=== PATIENT | male | born 1990 | race Hispanic/Latino ===

== ENCOUNTER → 2019-06-08 | Day surgery (SDC) | payer BC ==
[~2019-06-08] MED LIST: CBD PO; FENTANYL CITRATE/PF 100MCG/2 ML INJ ONE; LIDOCAINE HCL 2% LOCAL INJ 5 ML SDV VIAL INJ ONE; LORAZEPAM0.5 MG PO; MELATONIN10 M1 PO; MIDAZOLAM HCL 2 MG/2 ML VIAL ONE; PROPOFOL IV EMULSION 10 MG/ML 50 ML VIAL ONE
--- OUTSIDE RECORDS SUMMARY | 2019-06-08 09:58 | XMS REPORT ---
Author Author [facility] Address Unknown Phone Unavailable Care Team Providers Care Pad Machine Offbearer Name Role Phone Unavailable Unavailable Payers Payer Name Policy Type Policy Number Effective Date Expiration Date Problems This patient has no known problems. Allergies, Adverse Reactions, Alerts Allergy Name Allergy Type Status Severity Reaction(s) Onset Date Inactive Date Treating Clinician Comments No Known Allergies DA Active U 2019-05-31 00:00:00 Medications This patient has no known medications. Encounters Start Date/Time End Date/Time Encounter Type Admission Type Attending [facility] Emergency Department Facility Care Department Encounter ID 2019-05-27 10:13:00 2019-05-27 10:13:00 Emergency E [facility] 7513 2019-05-26 00:28:00 2019-05-26 00:28:00 Emergency E [facility] 7512 2019-05-23 14:47:00 2019-05-23 14:47:00 [facility] 2019-05-20 07:55:00 2019-05-20 07:55:00 [facility] 2019-05-11 15:15:00 2019-05-11 15:15:00 Emergency E [facility] 7509 2019-05-08 19:44:00 2019-05-08 19:44:00 Emergency E [facility] 7508 2019-05-05 13:32:00 2019-05-05 13:32:00 Emergency E [facility] 7507 2019-04-22 20:43:00 2019-04-22 20:43:00 Emergency E [facility] 7506 2019-04-22 11:43:00 2019-04-22 11:43:00 Emergency E [facility] 7505 2019-04-12 21:44:00 2019-04-12 21:44:00 Emergency E [facility] 7504 2019-04-05 12:41:00 2019-04-05 12:41:00 Emergency E [facility] 7503 Results Test Description Test Time Test Comments Text Results Atomic Results Result Comments XR Chest 1 View Frontal 2019-06-06 20:37:41 Patient: MEETA HARRISON Date/Time06/06/2019 20:19 CDTReason for ExamChest painReportSTUDY: Chest radiographHISTORY: Chest painCOMPARISON: 05/07/2019TECHNIQUE: Frontal view of the chest.SITE: [id number]:The cardiac silhouette is unremarkable. There is no pleural effusion, pneumothorax or focal consolidation.No acute osseous abnormalities are identified.IMPRESSION:1. No radiographic evidence of acute pulmonary abnormality. Final Dictated by: MD Prado Robert KDictated DT/TM: 06/06/2019 8:37 pmSigned by: MD Prado Robert KSigned (Electronic Signature): 06/06/2019 8:37 pm D-DIMER 2019-06-02 18:38:00 D-DIMER (test code=DDIMER) 203.00 ng/mLFEU 0-[address] POE BY MARIA L 06/02/19 1741Clinical Cut-off value for D-Dimer is 500 ng/mL FEU. Comment: The [employer] D-Dimer assay is intended for use asan aid in the diagnosis of venous thromboembolism (VTE)[deep vein thrombosis (DVT) or pulmonary embolism (PE)].The measurement of D-Dimer should not be used as an aid inthe diagnosis of VTE, in patient with: -Therapeutic dose anticoagulant therapy for >24 hours -Fibrinolytic therapy within previous 7 days -Trauma or surgery within previous 4 weeks -Disseminated malignancies -Aortic aneurysm - Sepsis, severe infections, pneumonia, severe skin infections -Liver cirrhosis - CBC W/O [id number] 18:16:00* Test Item Value Reference Range Comments WHITE BLOOD CELL (test code=WBC) 11.0 K/mm3 4.5-12.5 RED BLOOD CELL (test code=RBC) 5.80 mill/mm3 4.0-5.8 HEMOGLOBIN (test code=HGB) 15.1 gram/dL 13.0-17.5 HEMATOCRIT (test code=HCT) 45.5 % 42.0-52.0 MEAN CELL VOLUME (test code=MCV) 78.4 fL 80-98 MEAN CELL HGB (test code=MCH) 26.0 picogram 27.0-33.0 MEAN CELL HGB CONCETRATION (test code=MCHC) 33.2 gram/dL 33.0-36.0 RED CELL DISTRIBUTION WIDTH (test code=RDW) 14.8 % 11.6-16.2 PLATELET COUNT (test code=PLT) 254 K/mm3 150-450 MEAN PLATELET VOLUME (test code=MPV) 11.7 fL 6.7-11.0 BASIC METABOLIC [id number] 17:08:00* Test Item Value Reference Range Comments SODIUM (test code=NA) 144 mmol/L 136-145 POTASSIUM (test code=K) 3.4 mmol/L 3.5-5.1 CHLORIDE (test code=CL) 113.0 mmol/L 98-107 CARBON DIOXIDE (test code=CO2) 21.0 mmol/L 21-32 ANION GAP (test code=GAP) 13.4 10-20 GLUCOSE (test code=GLU) 91 mg/dL 74-106 BLOOD UREA NITROGEN (test code=BUN) 20 mg/dL 7-18 GLOMERULAR FILTRATION RATE (test code=GFR) > 60 mL/min >=60 Estimated GFR by using Modified MDRD formula.Chronic kidney disease is defined as either kidney damageor GFR <60 mL/min/1.73 m2 for >3 months. CREATININE (test code=CREAT) 1.00 mg/dL 0.7-1.3 BUN/CREATININE RATIO (test code=BUN/CREA) 20.7 10-20 CALCIUM (test code=CA) 9.3 mg/dL 8.5-10.1 [id number] 17:08:00* Test Item Value Reference Range Comments TROPONIN-I (test code=TROPI) <0.015 ng/mL 0-0.045 BASIC METABOLIC [id number] 17:00:00* Test Item Value Reference Range Comments SODIUM (test code=NA) 144 mmol/L 136-145 POTASSIUM (test code=K) 3.4 mmol/L 3.5-5.1 CHLORIDE (test code=CL) 113.0 mmol/L 98-107 CARBON DIOXIDE (test code=CO2) mmol/L 21-32 ANION GAP (test code=GAP) 10-20 GLUCOSE (test code=GLU) mg/dL 74-106 BLOOD UREA NITROGEN (test code=BUN) mg/dL 7-18 GLOMERULAR FILTRATION RATE (test code=GFR) mL/min >=60 CREATININE (test code=CREAT) mg/dL 0.7-1.3 BUN/CREATININE RATIO (test code=BUN/CREA) 10-20 CALCIUM (test code=CA) mg/dL 8.5-10.1 [id number] 17:00:00* Test Item Value Reference Range Comments TROPONIN-I (test code=TROPI) ng/mL 0-0.045 - XR CHEST 1 [id number] 16:17:00 FAX: Josr Poe MD [place]: B St: REG Name: MEETA PUENTE [facility] : [birth year] Age/S: 29/M [address] [facility] Unit #: [id number] Loc: [place] [address] Phys: Josr Poe MD Acct: [id number] Dis Date: Status: REG ER PHONE #: [phone] Exam Date: 06/02/2019 1559 FAX #: [phone] Reason: CHEST PAIN EXAMS: CPT CODE: [id number] XR CHEST 1 V 21098 EXAM: Chest X-ray, 1 view; CLINICAL HISTORY: Chest pain; FINDINGS: The lungs are clear, no infiltrates, no edema; no effusions; no pneumothorax; n ormal cardiomediastinal silhouette. IMPRESSION: Normal chest x-ray. No change compared with a study from 2 days ago. at 1617 Reporte d and signed by: Ludwig Sheikh M.D. CC: Josr Poe MD Technologist: Ranjan Fowler RT(R) Trnscrd Date/Time/By: 06/02/2019 (0005) : By: nicole MARIEEGRW Orig Print D/T: S: 06/02/2019 (1325) PAGE 1 Signed Report BASIC METABOLIC [id number] 16:26:00* Test Item Value Reference Range Comments SODIUM (test code=NA) 141 mmol/L 136-145 POTASSIUM (test code=K) 3.8 mmol/L 3.5-5.1 CHLORIDE (test code=CL) 111.0 mmol/L 98-107 CARBON DIOXIDE (test code=CO2) 21.0 mmol/L 21-32 ANION GAP (test code=GAP) 12.8 10-20 GLUCOSE (test code=GLU) 93 mg/dL 74-106 BLOOD UREA NITROGEN (test code=BUN) 14 mg/dL 7-18 GLOMERULAR FILTRATION RATE (test code=GFR) > 60 mL/min >=60 Estimated GFR by using Modified MDRD formula.Chronic kidney disease is defined as either kidney damageor GFR <60 mL/min/1.73 m2 for >3 months. CREATININE (test code=CREAT) 1.00 mg/dL 0.7-1.3 BUN/CREATININE RATIO (test code=BUN/CREA) 14.3 10-20 CALCIUM (test code=CA) 9.8 mg/dL 8.5-10.1 [id number] 16:26:00* Test Item Value Reference Range Comments TROPONIN-I (test code=TROPI) <0.015 ng/mL 0-0.045 - XR CHEST 1 [id number] 16:24:00 FAX: Ngoc Wakefield NP [place]: St: REG Name: MEETA PUENTE [facility] : [birth year] Age/S: 29/M [facility] Unit #: [id number] Loc: [place] [address] Phys: Ngoc Wakefield NP Acct: [id number] Dis Date: Status: REG ER PHONE #: [phone] Exam Date: 05/31/2019 1621 FAX #: [phone] Reason: CHEST PAIN EXAMS: CPT CODE: [id number] XR CHEST 1 V 70411 REASON FOR EXAM: CHEST PAIN EXAM ORDER DATE: 05/31/2019 3:56 PM Ordering Debbie: Ngoc Wakefield NP PROCEDURE: - XR CHEST 1 V COMPARISON: FINDINGS: Portable AP frontal view of the chest obtained at 4:15 PM shows clear lungs without evidence of consolidation. There is no evidence of effusion. The heart size is within normal limits. Pulmonary vasculatures are unremarkable. IMPRESSION: No active disease. at 5935 Reported and signed by: Kashmir Pope M.D. CC: Ngoc Wakefield NP Technologist: RT ARNULFO(R) Trnscrd Date/Time/By: 05/31/2019 (1 587) : By: DeisiVTL Orig Print D/T: S: 05/31/2019 (8657) PAGE 1 Signed Report BASIC METABOLIC [id number] 16:18:00* Test Item Value Reference Range Comments SODIUM (test code=NA) 141 mmol/L 136-145 POTASSIUM (test code=K) 3.8 mmol/L 3.5-5.1 CHLORIDE (test code=CL) 111.0 mmol/L 98-107 CARBON DIOXIDE (test code=CO2) mmol/L 21-32 ANION GAP (test code=GAP) 10-20 GLUCOSE (test code=GLU) mg/dL 74-106 BLOOD UREA NITROGEN (test code=BUN) mg/dL 7-18 GLOMERULAR FILTRATION RATE (test code=GFR) mL/min >=60 CREATININE (test code=CREAT) mg/dL 0.7-1.3 BUN/CREATININE RATIO (test code=BUN/CREA) 10-20 CALCIUM (test code=CA) 9.8 mg/dL 8.5-10.1 [id number] 16:18:00* Test Item Value Reference Range Comments TROPONIN-I (test code=TROPI) ng/mL 0-0.045 CBC W/O [id number] 16:13:00* Test Item Value Reference Range Comments WHITE BLOOD CELL (test code=WBC) 10.9 K/mm3 4.5-12.5 RED BLOOD CELL (test code=RBC) 5.95 mill/mm3 4.0-5.8 HEMOGLOBIN (test code=HGB) 15.4 gram/dL 13.0-17.5 HEMATOCRIT (test code=HCT) 47.2 % 42.0-52.0 MEAN CELL VOLUME (test code=MCV) 79.3 fL 80-98 MEAN CELL HGB (test code=MCH) 25.9 picogram 27.0-33.0 MEAN CELL HGB CONCETRATION (test code=MCHC) 32.6 gram/dL 33.0-36.0 RED CELL DISTRIBUTION WIDTH (test code=RDW) 15.0 % 11.6-16.2 PLATELET COUNT (test code=PLT) 276 K/mm3 150-450 MEAN PLATELET VOLUME (test code=MPV) 10.8 fL 6.7-11.0 CBC W/O [id number] 16:09:00* Test Item Value Reference Range Comments WHITE BLOOD CELL (test code=WBC) K/mm3 4.5-12.5 RED BLOOD CELL (test code=RBC) mill/mm3 4.0-5.8 HEMOGLOBIN (test code=HGB) 15.4 gram/dL 13.0-17.5 HEMATOCRIT (test code=HCT) 47.2 % 42.0-52.0 MEAN CELL VOLUME (test code=MCV) fL 80-98 MEAN CELL HGB (test code=MCH) picogram 27.0-33.0 MEAN CELL HGB CONCETRATION (test code=MCHC) gram/dL 33.0-36.0 RED CELL DISTRIBUTION WIDTH (test code=RDW) % 11.6-16.2 PLATELET COUNT (test code=PLT) K/mm3 150-450 MEAN PLATELET VOLUME (test code=MPV) fL 6.7-11.0 Urine [id number] 06:29:47 C Urine Added by [email or web address] growth at 24 hours. No growth at 48 hours.Comprehensive Metabolic [id number] 14:14:06 * Test Item Value Reference Range Comments Sodium Level (test code=Sodium Level) 142.0 mmol/L 135.0-145.0 Potassium Level (test code=Potassium Level) 3.8 mmol/L 3.5-5.1 Chloride Level (test code=Chloride Level) 105 mmol/L 98-105 CO2 (test code=CO2) 23 mmol/L 22-29 Anion Gap (test code=Anion Gap) 14 mmol/L 7-16 BUN (test code=BUN) 11.90 mg/dL 6.00-20.00 Creatinine Level (test code=Creatinine Level) 1.00 mg/dL 0.70-1.20 BUN/Creat Ratio (test code=BUN/Creat Ratio) 12 Glucose Level (test code=Glucose Level) 152 mg/dL 70-115 Calcium Level (test code=Calcium Level) 9.9 mg/dL 8.3-10.5 Alk Phos (test code=Alk Phos) 73 U/L 40-129 Bilirubin Total (test code=Bilirubin Total) 1.1 mg/dL 0.1-0.9 Albumin Level (test code=Albumin Level) 4.7 g/dL 3.5-5.2 Protein Total (test code=Protein Total) 7.5 g/dL 6.4-8.3 ALT (test code=ALT) 54 U/L 1-41 AST (test code=AST) 24 U/L 1-40 Globulin (test code=Globulin) 2.8 g/dL 2.9-3.1 A/G Ratio (test code=A/G Ratio) 1.7 ratio Comprehensive Metabolic [id number] 14:14:06* Test Item Value Reference Range Comments Sodium Level (test code=Sodium Level) 142.0 mmol/L 135.0-145.0 Potassium Level (test code=Potassium Level) 3.8 mmol/L 3.5-5.1 Chloride Level (test code=Chloride Level) 105 mmol/L 98-105 CO2 (test code=CO2) 23 mmol/L 22-29 Anion Gap (test code=Anion Gap) 14 mmol/L 7-16 BUN (test code=BUN) 11.90 mg/dL 6.00-20.00 Creatinine Level (test code=Creatinine Level) 1.00 mg/dL 0.70-1.20 BUN/Creat Ratio (test code=BUN/Creat Ratio) 12 Glucose Level (test code=Glucose Level) 152 mg/dL 70-115 Calcium Level (test code=Calcium Level) 9.9 mg/dL 8.3-10.5 Alk Phos (test code=Alk Phos) 73 U/L 40-129 Bilirubin Total (test code=Bilirubin Total) 1.1 mg/dL 0.1-0.9 Albumin Level (test code=Albumin Level) 4.7 g/dL 3.5-5.2 Protein Total (test code=Protein Total) 7.5 g/dL 6.4-8.3 ALT (test code=ALT) 54 U/L 1-41 AST (test code=AST) 24 U/L 1-40 Globulin (test code=Globulin) 2.8 g/dL 2.9-3.1 A/G Ratio (test code=A/G Ratio) 1.7 ratio eGFR AA (test code=eGFR AA) >60 mL/min/1.73 m2 eGFR (estimated Glomerular Filtration Rate) is an estimated value, calculated from the patient's serum creatinine using the MDRD equation. It is NOT the patient's actual GFR. The eGFR provides a more clinically useful measure of kidney disease than serum creatinine alone.This calculation takes sex and race into account, if the information is provided. If the race is not provided, and the patient is -[place], multiply by 1.212. If sex is not provided, and the patient is female, multiply by 0.742. Results for patients <18 years of age have not been validated by the MDRD study and should be interpreted with caution. eGFR Result Interpretation:eGFR > or=60 is in the Normal RangeeGFR < 60 may mean kidney diseaseeGFR < 15 may mean kidney failure Ranges recommended by the National Kidney Foundation, http://nkdep.nih.gov Troponin [id number] 14:14:06* Test Item Value Reference Range Comments Troponin-T (test code=Troponin-T) <6.000 ng/L 0.000-22.000 The CV of the assay at 99th percentile for both male and female patient population is < 10%. A rise and fall in MICHELLE with at least one value above the 99th percentile with clinical evidence of myocardial ischemia would support a diagnosis of AMI. A delta of at least 20% is recommended to assess acute changes in results above the 99th percentile in serial measurements. Stable MICHELLE levels (<20%) delta above the 99th percentile URL would support a diagnosis of chronic myocardial injury. Comprehensive Metabolic [id number] 14:14:06* Test Item Value Reference Range Comments Sodium Level (test code=Sodium Level) 142.0 mmol/L 135.0-145.0 Potassium Level (test code=Potassium Level) 3.8 mmol/L 3.5-5.1 Chloride Level (test code=Chloride Level) 105 mmol/L 98-105 CO2 (test code=CO2) 23 mmol/L 22-29 Anion Gap (test code=Anion Gap) 14 mmol/L 7-16 BUN (test code=BUN) 11.90 mg/dL 6.00-20.00 Creatinine Level (test code=Creatinine Level) 1.00 mg/dL 0.70-1.20 BUN/Creat Ratio (test code=BUN/Creat Ratio) 12 Glucose Level (test code=Glucose Level) 152 mg/dL 70-115 Calcium Level (test code=Calcium Level) 9.9 mg/dL 8.3-10.5 Alk Phos (test code=Alk Phos) 73 U/L 40-129 Bilirubin Total (test code=Bilirubin Total) 1.1 mg/dL 0.1-0.9 Albumin Level (test code=Albumin Level) 4.7 g/dL 3.5-5.2 Protein Total (test code=Protein Total) 7.5 g/dL 6.4-8.3 ALT (test code=ALT) 54 U/L 1-41 AST (test code=AST) 24 U/L 1-40 Globulin (test code=Globulin) 2.8 g/dL 2.9-3.1 A/G Ratio (test code=A/G Ratio) 1.7 ratio eGFR AA (test code=eGFR AA) >60 mL/min/1.73 m2 eGFR (estimated Glomerular Filtration Rate) is an estimated value, calculated from the patient's serum creatinine using the MDRD equation. It is NOT the patient's actual GFR. The eGFR provides a more clinically useful measure of kidney disease than serum creatinine alone.This calculation takes sex and race into account, if the information is provided. If the race is not provided, and the patient is -[place], multiply by 1.212. If sex is not provided, and the patient is female, multiply by 0.742. Results for patients <18 years of age have not been validated by the MDRD study and should be interpreted with caution. eGFR Result Interpretation:eGFR > or=60 is in the Normal RangeeGFR < 60 may mean kidney diseaseeGFR < 15 may mean kidney failure Ranges recommended by the National Kidney Foundation, http://nkdep.nih.gov eGFR Non-AA (test code=eGFR Non-AA) >60.00 mL/min/1.73 m2 eGFR (estimated Glomerular Filtration Rate) is an estimated value, calculated from the patient's serum creatinine using the MDRD equation. It is NOT the patient's actual GFR. The eGFR provides a more clinically useful measure of kidney disease than serum creatinine alone.This calculation takes sex and race into account, if the information is provided. If the race is not provided, and the patient is -[place], multiply by 1.212. If sex is not provided, and the patient is female, multiply by 0.742. Results for patients <18 years of age have not been validated by the MDRD study and should be interpreted with caution. eGFR Result Interpretation:eGFR > or=60 is in the Normal RangeeGFR < 60 may mean kidney diseaseeGFR < 15 may mean kidney failure Ranges recommended by the National Kidney Foundation, http://nkdep.nih.gov Urinalysis [id number] 14:05:57* Test Item Value Reference Range Comments UA WBC (test code=UA WBC) 0-5 0-5 UA RBC (test code=UA RBC) None Seen 0-5 UA Bacteria (test code=UA Bacteria) Few UA Squam Epithelial (test code=UA Squam Epithelial) 6-10 UA Ca Ox Crystal (test code=UA Ca Ox Crystal) Few Urinalysis with Culture, if [id number] 13:56:53* Test Item Value Reference Range Comments UA Color (test code=UA Color) YELLO Yellow UA Appear (test code=UA Appear) CLEAR Clear UA pH (test code=UA pH) 5 UA Spec Grav (test code=UA Spec Grav) 1.021 1.001-1.035 UA Glucose (test code=UA Glucose) NEG Negative UA Bili (test code=UA Bili) NEG Negative UA Ketones (test code=UA Ketones) 150 mg/dL Negative UA Blood (test code=UA Blood) NEG Negative UA Protein (test code=UA Protein) NEG Negative UA Urobilinogen (test code=UA Urobilinogen) 0.2 mg/dL UA Nitrite (test code=UA Nitrite) NEG Negative UA Leuk Est (test code=UA Leuk Est) NEG Negative UA Micro Ind? (test code=UA Micro Ind?) Indicated Not Indicated Result created by rule GL_SJM_UA_MICRO_IND IG [id number] 13:55:29* Test Item Value Reference Range Comments IG (test code=IG) 0.4 % 0.0-5.0 IG Abs (test code=IG Abs) 0 x10 Complete Blood Count with [id number] 13:55:28* Test Item Value Reference Range Comments WBC (test code=WBC) 8.3 x10 4.4-10.5 RBC (test code=RBC) 5.86 x10 4.10-5.70 Hgb (test code=Hgb) 15.6 g/dL 13.4-17.4 Hct (test code=Hct) 46.7 % 38.7-52.0 MCV (test code=MCV) 79.70 fL 80.00-100.00 MCHC (test code=MCHC) 33.40 g/dL 32.00-37.50 MCH (test code=MCH) 26.6 pg 27.0-32.5 RDW CV (test code=RDW CV) 14.9 % 11.5-14.5 Platelets (test code=Platelets) 256.0 x10 140.0-440.0 MPV (test code=MPV) 10.9 fL Slide Review (test code=Slide Review) Auto Auto Result created by GL_SJM_SLIDE_REV_AUTO nRBC (test code=nRBC) 0 NRBC Abs (test code=NRBC Abs) 0.00 x10 IPF (test code=IPF) 0 % Automated [id number] 13:55:28* Test Item Value Reference Range Comments Neutro Auto (test code=Neutro Auto) 66.3 % 36.0-70.0 Lymph Auto (test code=Lymph Auto) 29.6 % 12.0-44.0 Butler Auto (test code=Butler Auto) 2.9 % 0.0-11.0 Eos, Auto (test code=Eos, Auto) 0.4 % 0.0-7.0 Basophil Auto (test code=Basophil Auto) 0.4 % 0.0-2.0 Neutro Absolute (test code=Neutro Absolute) 5.5 x10 1.6-7.4 Lymph Absolute (test code=Lymph Absolute) 2.46 x10 .50-4.60 Butler Absolute (test code=Butler Absolute) .24 x10 .00-1.20 Eos Absolute (test code=Eos Absolute) 0.03 x10 0.00-0.74 Baso Absolute (test code=Baso Absolute) 0.03 x10 0.00-0.21 Comprehensive Metabolic [id number] 23:21:41* Test Item Value Reference Range Comments Sodium Level (test code=Sodium Level) 137.0 mmol/L 135.0-145.0 Potassium Level (test code=Potassium Level) 3.5 mmol/L 3.5-5.1 Chloride Level (test code=Chloride Level) 102 mmol/L 98-105 CO2 (test code=CO2) 22 mmol/L 22-29 Anion Gap (test code=Anion Gap) 13 mmol/L 7-16 BUN (test code=BUN) 12.10 mg/dL 6.00-20.00 Creatinine Level (test code=Creatinine Level) 0.90 mg/dL 0.70-1.20 BUN/Creat Ratio (test code=BUN/Creat Ratio) 13 Glucose Level (test code=Glucose Level) 98 mg/dL 70-115 Calcium Level (test code=Calcium Level) 9.7 mg/dL 8.3-10.5 Alk Phos (test code=Alk Phos) 88 U/L 40-129 Bilirubin Total (test code=Bilirubin Total) 0.7 mg/dL 0.1-0.9 Albumin Level (test code=Albumin Level) 4.8 g/dL 3.5-5.2 Protein Total (test code=Protein Total) 7.4 g/dL 6.4-8.3 ALT (test code=ALT) 83 U/L 1-41 AST (test code=AST) 45 U/L 1-40 Globulin (test code=Globulin) 2.6 g/dL 2.9-3.1 A/G Ratio (test code=A/G Ratio) 1.8 ratio Comprehensive Metabolic [id number] 23:21:41* Test Item Value Reference Range Comments Sodium Level (test code=Sodium Level) 137.0 mmol/L 135.0-145.0 Potassium Level (test code=Potassium Level) 3.5 mmol/L 3.5-5.1 Chloride Level (test code=Chloride Level) 102 mmol/L 98-105 CO2 (test code=CO2) 22 mmol/L 22-29 Anion Gap (test code=Anion Gap) 13 mmol/L 7-16 BUN (test code=BUN) 12.10 mg/dL 6.00-20.00 Creatinine Level (test code=Creatinine Level) 0.90 mg/dL 0.70-1.20 BUN/Creat Ratio (test code=BUN/Creat Ratio) 13 Glucose Level (test code=Glucose Level) 98 mg/dL 70-115 Calcium Level (test code=Calcium Level) 9.7 mg/dL 8.3-10.5 Alk Phos (test code=Alk Phos) 88 U/L 40-129 Bilirubin Total (test code=Bilirubin Total) 0.7 mg/dL 0.1-0.9 Albumin Level (test code=Albumin Level) 4.8 g/dL 3.5-5.2 Protein Total (test code=Protein Total) 7.4 g/dL 6.4-8.3 ALT (test code=ALT) 83 U/L 1-41 AST (test code=AST) 45 U/L 1-40 Globulin (test code=Globulin) 2.6 g/dL 2.9-3.1 A/G Ratio (test code=A/G Ratio) 1.8 ratio eGFR AA (test code=eGFR AA) >60 mL/min/1.73 m2 eGFR (estimated Glomerular Filtration Rate) is an estimated value, calculated from the patient's serum creatinine using the MDRD equation. It is NOT the patient's actual GFR. The eGFR provides a more clinically useful measure of kidney disease than serum creatinine alone.This calculation takes sex and race into account, if the information is provided. If the race is not provided, and the patient is -[place], multiply by 1.212. If sex is not provided, and the patient is female, multiply by 0.742. Results for patients <18 years of age have not been validated by the MDRD study and should be interpreted with caution. eGFR Result Interpretation:eGFR > or=60 is in the Normal RangeeGFR < 60 may mean kidney diseaseeGFR < 15 may mean kidney failure Ranges recommended by the National Kidney Foundation, http://nkdep.nih.gov Lipase [id number] 23:21:41* Test Item Value Reference Range Comments Lipase Level (test code=Lipase Level) 31 U/L 13-60 Comprehensive Metabolic [id number] 23:21:41* Test Item Value Reference Range Comments Sodium Level (test code=Sodium Level) 137.0 mmol/L 135.0-145.0 Potassium Level (test code=Potassium Level) 3.5 mmol/L 3.5-5.1 Chloride Level (test code=Chloride Level) 102 mmol/L 98-105 CO2 (test code=CO2) 22 mmol/L 22-29 Anion Gap (test code=Anion Gap) 13 mmol/L 7-16 BUN (test code=BUN) 12.10 mg/dL 6.00-20.00 Creatinine Level (test code=Creatinine Level) 0.90 mg/dL 0.70-1.20 BUN/Creat Ratio (test code=BUN/Creat Ratio) 13 Glucose Level (test code=Glucose Level) 98 mg/dL 70-115 Calcium Level (test code=Calcium Level) 9.7 mg/dL 8.3-10.5 Alk Phos (test code=Alk Phos) 88 U/L 40-129 Bilirubin Total (test code=Bilirubin Total) 0.7 mg/dL 0.1-0.9 Albumin Level (test code=Albumin Level) 4.8 g/dL 3.5-5.2 Protein Total (test code=Protein Total) 7.4 g/dL 6.4-8.3 ALT (test code=ALT) 83 U/L 1-41 AST (test code=AST) 45 U/L 1-40 Globulin (test code=Globulin) 2.6 g/dL 2.9-3.1 A/G Ratio (test code=A/G Ratio) 1.8 ratio eGFR AA (test code=eGFR AA) >60 mL/min/1.73 m2 eGFR (estimated Glomerular Filtration Rate) is an estimated value, calculated from the patient's serum creatinine using the MDRD equation. It is NOT the patient's actual GFR. The eGFR provides a more clinically useful measure of kidney disease than serum creatinine alone.This calculation takes sex and race into account, if the information is provided. If the race is not provided, and the patient is -[place], multiply by 1.212. If sex is not provided, and the patient is female, multiply by 0.742. Results for patients <18 years of age have not been validated by the MDRD study and should be interpreted with caution. eGFR Result Interpretation:eGFR > or=60 is in the Normal RangeeGFR < 60 may mean kidney diseaseeGFR < 15 may mean kidney failure Ranges recommended by the [employer], http://nkdep.nih.gov eGFR Non-AA (test code=eGFR Non-AA) >60.00 mL/min/1.73 m2 eGFR (estimated Glomerular Filtration Rate) is an estimated value, calculated from the patient's serum creatinine using the MDRD equation. It is NOT the patient's actual GFR. The eGFR provides a more clinically useful measure of kidney disease than serum creatinine alone.This calculation takes sex and race into account, if the information is provided. If the race is not provided, and the patient is -[place], multiply by 1.212. If sex is not provided, and the patient is female, multiply by 0.742. Results for patients <18 years of age have not been validated by the MDRD study and should be interpreted with caution. eGFR Result Interpretation:eGFR > or=60 is in the Normal RangeeGFR < 60 may mean kidney diseaseeGFR < 15 may mean kidney failure Ranges recommended by the National Kidney Foundation, http://nkdep.nih.gov Complete Blood Count with [id number] 22:58:44* Test Item Value Reference Range Comments WBC (test code=WBC) 9.7 x10 4.4-10.5 RBC (test code=RBC) 5.73 x10 4.10-5.70 Hgb (test code=Hgb) 15.0 g/dL 13.4-17.4 MCV (test code=MCV) 78.70 fL 80.00-100.00 Hct (test code=Hct) 45.1 % 38.7-52.0 MCHC (test code=MCHC) 33.30 g/dL 32.00-37.50 RDW CV (test code=RDW CV) 14.8 % 11.5-14.5 MCH (test code=MCH) 26.2 pg 27.0-32.5 Platelets (test code=Platelets) 259.0 x10 140.0-440.0 MPV (test code=MPV) 11.2 fL Slide Review (test code=Slide Review) Auto Auto Result created by [email or web address]_AUTO nRBC (test code=nRBC) 0 NRBC Abs (test code=NRBC Abs) 0.00 x10 IPF (test code=IPF) 0 % Automated [id number] 22:58:44* Test Item Value Reference Range Comments Neutro Auto (test code=Neutro Auto) 45.0 % 36.0-70.0 Lymph Auto (test code=Lymph Auto) 46.7 % 12.0-44.0 Butler Auto (test code=Butler Auto) 6.2 % 0.0-11.0 Eos, Auto (test code=Eos, Auto) 1.3 % 0.0-7.0 Basophil Auto (test code=Basophil Auto) 0.5 % 0.0-2.0 Neutro Absolute (test code=Neutro Absolute) 4.3 x10 1.6-7.4 Lymph Absolute (test code=Lymph Absolute) 4.51 x10 .50-4.60 Butler Absolute (test code=Butler Absolute) .60 x10 .00-1.20 Eos Absolute (test code=Eos Absolute) 0.13 x10 0.00-0.74 Baso Absolute (test code=Baso Absolute) 0.05 x10 0.00-0.21 IG [id number] 22:58:44* Test Item Value Reference Range Comments IG (test code=IG) 0.3 % 0.0-5.0 IG Abs (test code=IG Abs) [address] Angio [id number] 08:37:52Patient: MEETA HARRISON Date/Time05/07/2019 08:27 CDTReason for Examchest pain, dyspnea;Chest painReportDictation location R 16 CT OF THE CHEST WITH CONTRASTCLINICAL HISTORY:Chest painTECHNIQUE:1.5 mm contiguous axial images were obtained from the aortic arch to the diaphragmatic dome. Intravenous contrast was administered using CT pulmonary angiogram protocol. Sagittal and coronal and coronal oblique reformations were obtained and reviewed. An up to date CT recommended radiation dose reduction technique was utilized with total DLP of 605 mGy-cm.COMPARISON: Recent chest x-ray which was unremarkable.FINDINGS:Pulmonary arteries: Suboptimal opacification of the pulmonary arteries with no obvious pulmonary embolism.Heart and great vessels: Normal size heart. No pericardial effusion, cardiac decompensation.Lungs and pleura: No endobronchial obstruction, focal consolidation, pneumothorax or eff usion. No concerning nodules or masses. The chest wall is intact.Mediastinum and shonna: Normal appearing thyroid. No abnormal mass or adenopathy.Upper abdomen: N othing acuteBones and soft tissues: No focal findings.IMPRESSION:1. Suboptimal o pacification of the pulmonary arteries with no obvious pulmonary embolism.2. Unr emarkable CT of the chest. Final Dictated by: MD Carballo Phebe CDict ated DT/TM: 05/07/2019 8:34 amSigned by: MD Carballo Phebe CSigned (Electronic Si gnature): 05/07/2019 8:37 amComprehensive Metabolic [id number] 07:04:12* Test Item Value Reference Range Comments Sodium Level (test code=Sodium Level) 140.0 mmol/L 135.0-145.0 Potassium Level (test code=Potassium Level) 3.7 mmol/L 3.5-5.1 Chloride Level (test code=Chloride Level) 105 mmol/L 98-105 CO2 (test code=CO2) 25 mmol/L 22-29 Anion Gap (test code=Anion Gap) 10 mmol/L 7-16 BUN (test code=BUN) 9.40 mg/dL 6.00-20.00 Creatinine Level (test code=Creatinine Level) 1.00 mg/dL 0.70-1.20 BUN/Creat Ratio (test code=BUN/Creat Ratio) 9 Glucose Level (test code=Glucose Level) 93 mg/dL 70-115 Calcium Level (test code=Calcium Level) 9.4 mg/dL 8.3-10.5 Alk Phos (test code=Alk Phos) 73 U/L 40-129 Bilirubin Total (test code=Bilirubin Total) 1.1 mg/dL 0.1-0.9 Albumin Level (test code=Albumin Level) 4.7 g/dL 3.5-5.2 Protein Total (test code=Protein Total) 7.2 g/dL 6.4-8.3 ALT (test code=ALT) 83 U/L 1-41 AST (test code=AST) 42 U/L 1-40 Globulin (test code=Globulin) 2.5 g/dL 2.9-3.1 A/G Ratio (test code=A/G Ratio) 1.9 ratio Creatine [id number] 07:04:12* Test Item Value Reference Range Comments CK (test code=CK) 200 U/L 39-308 Comprehensive Metabolic [id number] 07:04:12* Test Item Value Reference Range Comments Sodium Level (test code=Sodium Level) 140.0 mmol/L 135.0-145.0 Potassium Level (test code=Potassium Level) 3.7 mmol/L 3.5-5.1 Chloride Level (test code=Chloride Level) 105 mmol/L 98-105 CO2 (test code=CO2) 25 mmol/L 22-29 Anion Gap (test code=Anion Gap) 10 mmol/L 7-16 BUN (test code=BUN) 9.40 mg/dL 6.00-20.00 Creatinine Level (test code=Creatinine Level) 1.00 mg/dL 0.70-1.20 BUN/Creat Ratio (test code=BUN/Creat Ratio) 9 Glucose Level (test code=Glucose Level) 93 mg/dL 70-115 Calcium Level (test code=Calcium Level) 9.4 mg/dL 8.3-10.5 Alk Phos (test code=Alk Phos) 73 U/L 40-129 Bilirubin Total (test code=Bilirubin Total) 1.1 mg/dL 0.1-0.9 Albumin Level (test code=Albumin Level) 4.7 g/dL 3.5-5.2 Protein Total (test code=Protein Total) 7.2 g/dL 6.4-8.3 ALT (test code=ALT) 83 U/L 1-41 AST (test code=AST) 42 U/L 1-40 Globulin (test code=Globulin) 2.5 g/dL 2.9-3.1 A/G Ratio (test code=A/G Ratio) 1.9 ratio eGFR AA (test code=eGFR AA) >60 mL/min/1.73 m2 eGFR (estimated Glomerular Filtration Rate) is an estimated value, calculated from the patient's serum creatinine using the MDRD equation. It is NOT the patient's actual GFR. The eGFR provides a more clinically useful measure of kidney disease than serum creatinine alone.This calculation takes sex and race into account, if the information is provided. If the race is not provided, and the patient is -[place], multiply by 1.212. If sex is not provided, and the patient is female, multiply by 0.742. Results for patients <18 years of age have not been validated by the MDRD study and should be interpreted with caution. eGFR Result Interpretation:eGFR > or=60 is in the Normal RangeeGFR < 60 may mean kidney diseaseeGFR < 15 may mean kidney failure Ranges recommended by the National Kidney Foundation, http://nkdep.nih.gov Lipase [id number] 07:04:12* Test Item Value Reference Range Comments Lipase Level (test code=Lipase Level) 23 U/L 13-60 Alcohol [id number] 07:04:12* Test Item Value Reference Range Comments Ethanol Level (test code=Ethanol Level) <0.00 g/dL 0.00-0.01 Intoxicated 0.080 g/dL or more Ethanol Inst (test code=Ethanol Inst) <0 Comprehensive Metabolic [id number] 07:04:12* Test Item Value Reference Range Comments Sodium Level (test code=Sodium Level) 140.0 mmol/L 135.0-145.0 Potassium Level (test code=Potassium Level) 3.7 mmol/L 3.5-5.1 Chloride Level (test code=Chloride Level) 105 mmol/L 98-105 CO2 (test code=CO2) 25 mmol/L 22-29 Anion Gap (test code=Anion Gap) 10 mmol/L 7-16 BUN (test code=BUN) 9.40 mg/dL 6.00-20.00 Creatinine Level (test code=Creatinine Level) 1.00 mg/dL 0.70-1.20 BUN/Creat Ratio (test code=BUN/Creat Ratio) 9 Glucose Level (test code=Glucose Level) 93 mg/dL 70-115 Calcium Level (test code=Calcium Level) 9.4 mg/dL 8.3-10.5 Alk Phos (test code=Alk Phos) 73 U/L 40-129 Bilirubin Total (test code=Bilirubin Total) 1.1 mg/dL 0.1-0.9 Albumin Level (test code=Albumin Level) 4.7 g/dL 3.5-5.2 Protein Total (test code=Protein Total) 7.2 g/dL 6.4-8.3 ALT (test code=ALT) 83 U/L 1-41 AST (test code=AST) 42 U/L 1-40 Globulin (test code=Globulin) 2.5 g/dL 2.9-3.1 A/G Ratio (test code=A/G Ratio) 1.9 ratio eGFR AA (test code=eGFR AA) >60 mL/min/1.73 m2 eGFR (estimated Glomerular Filtration Rate) is an estimated value, calculated from the patient's serum creatinine using the MDRD equation. It is NOT the patient's actual GFR. The eGFR provides a more clinically useful measure of kidney disease than serum creatinine alone.This calculation takes sex and race into account, if the information is provided. If the race is not provided, and the patient is -[place], multiply by 1.212. If sex is not provided, and the patient is female, multiply by 0.742. Results for patients <18 years of age have not been validated by the MDRD study and should be interpreted with caution. eGFR Result Interpretation:eGFR > or=60 is in the Normal RangeeGFR < 60 may mean kidney diseaseeGFR < 15 may mean kidney failure Ranges recommended by the National Kidney Foundation, http://nkdep.nih.gov eGFR Non-AA (test code=eGFR Non-AA) >60.00 mL/min/1.73 m2 eGFR (estimated Glomerular Filtration Rate) is an estimated value, calculated from the patient's serum creatinine using the MDRD equation. It is NOT the patient's actual GFR. The eGFR provides a more clinically useful measure of kidney disease than serum creatinine alone.This calculation takes sex and race into account, if the information is provided. If the race is not provided, and the patient is -[place], multiply by 1.212. If sex is not provided, and the patient is female, multiply by 0.742. Results for patients <18 years of age have not been validated by the MDRD study and should be interpreted with caution. eGFR Result Interpretation:eGFR > or=60 is in the Normal RangeeGFR < 60 may mean kidney diseaseeGFR < 15 may mean kidney failure Ranges recommended by the National Kidney Foundation, http://nkdep.nih.gov Drugs of Abuse Urine [id number] 07:03:53* Test Item Value Reference Range Comments Amphetamine Screen Ur (test code=Amphetamine Screen Ur) Negative Negative For diagnostic purposes only. Positive results should always be assessed in conjunction with a patient's medical history. Barbiturate Screen Ur (test code=Barbiturate Screen Ur) Negative Negative Benzodiazepines Ur (test code=Benzodiazepines Ur) Negative Negative Cocaine Screen Ur (test code=Cocaine Screen Ur) Negative Negative U Methadone (test code=U Methadone) Negative Negative Opiate Screen Ur (test code=Opiate Screen Ur) Negative Negative U PCP Scrn (test code=U PCP Scrn) Negative Negative U Propoxyphene (test code=U Propoxyphene) Negative Negative Cannabinoid Screen Ur (test code=Cannabinoid Screen Ur) Negative Negative Urinalysis [id number] 07:01:07* Test Item Value Reference Range Comments UA WBC (test code=UA WBC) None Seen 0-5 UA RBC (test code=UA RBC) None Seen 0-5 UA Ca Ox Crystal (test code=UA Ca Ox Crystal) Moderate Pro B Natriuretic [id number] 06:59:56* Test Item Value Reference Range Comments NT-proBNP (test code=NT-proBNP) 88 pg/mL 0-124 Prothrombin Time and [id number] 06:59:03* Test Item Value Reference Range Comments Prothrombin Time (test code=Prothrombin Time) 13.0 seconds 9.8-13.4 INR (test code=INR) 1.1 ratio 0.6-1.2 Partial Thromboplastin [id number] 06:59:03* Test Item Value Reference Range Comments Partial Thromboplastin Time (test code=Partial Thromboplastin Time) 31.90 seconds 24.39-37.25 Urinalysis with Microscopic if [id number] 06:53:56* Test Item Value Reference Range Comments UA Color (test code=UA Color) YELLO Yellow UA Appear (test code=UA Appear) CLEAR Clear UA pH (test code=UA pH) 5 UA Spec Grav (test code=UA Spec Grav) 1.015 1.001-1.035 UA Glucose (test code=UA Glucose) NEG Negative UA Ketones (test code=UA Ketones) 15 mg/dL Negative UA Blood (test code=UA Blood) NEG Negative UA Protein (test code=UA Protein) NEG Negative UA Bili (test code=UA Bili) NEG Negative UA Urobilinogen (test code=UA Urobilinogen) 0.2 mg/dL UA Nitrite (test code=UA Nitrite) NEG Negative UA Leuk Est (test code=UA Leuk Est) NEG Negative UA Micro Ind? (test code=UA Micro Ind?) Indicated Not Indicated Result created by rule GL_[email or web address]_UA_MICRO_IND Troponin [id number] 06:53:04* Test Item Value Reference Range Comments Troponin-T (test code=Troponin-T) 6.240 ng/L 0.000-22.000 The CV of the assay at 99th percentile for both male and female patient population is < 10%. A rise and fall in MICHELLE with at least one value above the 99th percentile with clinical evidence of myocardial ischemia would support a diagnosis of AMI. A delta of at least 20% is recommended to access acute changes in results above the 99th percentile in serial measurements. Stable MICHELLE levels (<20%) delta above the 99th percentile URL would support a diagnosis of chronic myocardial injury. Complete Blood Count with [id number] 06:50:03* Test Item Value Reference Range Comments WBC (test code=WBC) 5.8 x10 4.4-10.5 RBC (test code=RBC) 5.66 x10 4.10-5.70 Hgb (test code=Hgb) 14.7 g/dL 13.4-17.4 MCV (test code=MCV) 77.00 fL 80.00-100.00 Hct (test code=Hct) 43.6 % 38.7-52.0 MCHC (test code=MCHC) 33.70 g/dL 32.00-37.50 RDW CV (test code=RDW CV) 14.2 % 11.5-14.5 MCH (test code=MCH) 26.0 pg 27.0-32.5 Platelets (test code=Platelets) 264.0 x10 140.0-440.0 MPV (test code=MPV) 11.0 fL Slide Review (test code=Slide Review) Auto Auto Result created by [email or web address]_REV_AUTO nRBC (test code=nRBC) 0 NRBC Abs (test code=NRBC Abs) 0.00 x10 IPF (test code=IPF) 0 % Automated [id number] 06:50:03* Test Item Value Reference Range Comments Neutro Auto (test code=Neutro Auto) 55.4 % 36.0-70.0 Lymph Auto (test code=Lymph Auto) 35.6 % 12.0-44.0 Butler Auto (test code=Butler Auto) 7.4 % 0.0-11.0 Eos, Auto (test code=Eos, Auto) 0.7 % 0.0-7.0 Basophil Auto (test code=Basophil Auto) 0.7 % 0.0-2.0 Neutro Absolute (test code=Neutro Absolute) 3.2 x10 1.6-7.4 Lymph Absolute (test code=Lymph Absolute) 2.08 x10 .50-4.60 Butler Absolute (test code=Butler Absolute) .43 x10 .00-1.20 Eos Absolute (test code=Eos Absolute) 0.04 x10 0.00-0.74 Baso Absolute (test code=Baso Absolute) 0.04 x10 0.00-0.21 IG [id number] 06:50:03* Test Item Value Reference Range Comments IG (test code=IG) 0.2 % 0.0-5.0 IG Abs (test code=IG Abs) 0 x10 XR Chest 1 View [id number] 06:39:00Patient: MEETA HARRISON Date/Time05/07/2019 06:18 CDTReason for ExamCHF (Congestive Heart Failure), knownReportAFTER HOURS SERVICE ON: 05/07/2019 6:38 AMAP Portable ChestLocation Code [id number]: CHF (Congestive Heart Failure), knownFINDINGS:There are no infiltrates. There are no pleural effusions. There is no pneumothorax. Cardiac silhouette and mediastinum appear within normal limits.IMPRESSION:No active pulmonary findings. Final Dictated by: MD Hanks Mohammad TDictated DT/TM: 05/07/2019 6:38 amSigned by: MD Hanks Mohammad TSigned (Electronic Signature): 05/07/2019 6:39 amCreatine [id number] 20:30:46* Test Item Value Reference Range Comments CK (test code=CK) 199 U/L 39-308 Troponin [id number] 20:14:08* Test Item Value Reference Range Comments Troponin-T (test code=Troponin-T) <6.000 ng/L 0.000-22.000 The CV of the assay at 99th percentile for both male and female patient population is < 10%. A rise and fall in MICHELLE with at least one value above the 99th percentile with clinical evidence of myocardial ischemia would support a diagnosis of AMI. A delta of at least 20% is recommended to access acute changes in results above the 99th percentile in serial measurements. Stable MICHELLE levels (<20%) delta above the 99th percentile URL would support a diagnosis of chronic myocardial injury. Comprehensive Metabolic [id number] 20:13:38* Test Item Value Reference Range Comments Sodium Level (test code=Sodium Level) 139.0 mmol/L 135.0-145.0 Potassium Level (test code=Potassium Level) 4.1 mmol/L 3.5-5.1 Chloride Level (test code=Chloride Level) 102 mmol/L 98-105 CO2 (test code=CO2) 29 mmol/L 22-29 Anion Gap (test code=Anion Gap) 8 mmol/L 7-16 BUN (test code=BUN) 11.00 mg/dL 6.00-20.00 Creatinine Level (test code=Creatinine Level) 1.10 mg/dL 0.70-1.20 BUN/Creat Ratio (test code=BUN/Creat Ratio) 10 Glucose Level (test code=Glucose Level) 96 mg/dL 70-115 Calcium Level (test code=Calcium Level) 9.3 mg/dL 8.3-10.5 Alk Phos (test code=Alk Phos) 81 U/L 40-129 Bilirubin Total (test code=Bilirubin Total) 0.7 mg/dL 0.1-0.9 Albumin Level (test code=Albumin Level) 4.5 g/dL 3.5-5.2 Protein Total (test code=Protein Total) 7.6 g/dL 6.4-8.3 ALT (test code=ALT) 102 U/L 1-41 AST (test code=AST) 36 U/L 1-40 Globulin (test code=Globulin) 3.1 g/dL 2.9-3.1 A/G Ratio (test code=A/G Ratio) 1.5 ratio Comprehensive Metabolic [id number] 20:13:38* Test Item Value Reference Range Comments Sodium Level (test code=Sodium Level) 139.0 mmol/L 135.0-145.0 Potassium Level (test code=Potassium Level) 4.1 mmol/L 3.5-5.1 Chloride Level (test code=Chloride Level) 102 mmol/L 98-105 CO2 (test code=CO2) 29 mmol/L 22-29 Anion Gap (test code=Anion Gap) 8 mmol/L 7-16 BUN (test code=BUN) 11.00 mg/dL 6.00-20.00 Creatinine Level (test code=Creatinine Level) 1.10 mg/dL 0.70-1.20 BUN/Creat Ratio (test code=BUN/Creat Ratio) 10 Glucose Level (test code=Glucose Level) 96 mg/dL 70-115 Calcium Level (test code=Calcium Level) 9.3 mg/dL 8.3-10.5 Alk Phos (test code=Alk Phos) 81 U/L 40-129 Bilirubin Total (test code=Bilirubin Total) 0.7 mg/dL 0.1-0.9 Albumin Level (test code=Albumin Level) 4.5 g/dL 3.5-5.2 Protein Total (test code=Protein Total) 7.6 g/dL 6.4-8.3 ALT (test code=ALT) 102 U/L 1-41 AST (test code=AST) 36 U/L 1-40 Globulin (test code=Globulin) 3.1 g/dL 2.9-3.1 A/G Ratio (test code=A/G Ratio) 1.5 ratio eGFR AA (test code=eGFR AA) >60 mL/min/1.73 m2 eGFR (estimated Glomerular Filtration Rate) is an estimated value, calculated from the patient's serum creatinine using the MDRD equation. It is NOT the patient's actual GFR. The eGFR provides a more clinically useful measure of kidney disease than serum creatinine alone.This calculation takes sex and race into account, if the information is provided. If the race is not provided, and the patient is -[place], multiply by 1.212. If sex is not provided, and the patient is female, multiply by 0.742. Results for patients <18 years of age have not been validated by the MDRD study and should be interpreted with caution. eGFR Result Interpretation:eGFR > or=60 is in the Normal RangeeGFR < 60 may mean kidney diseaseeGFR < 15 may mean kidney failure Ranges recommended by the National Kidney Foundation, http://nkdep.nih.gov Comprehensive Metabolic [id number] 20:13:38* Test Item Value Reference Range Comments Sodium Level (test code=Sodium Level) 139.0 mmol/L 135.0-145.0 Potassium Level (test code=Potassium Level) 4.1 mmol/L 3.5-5.1 Chloride Level (test code=Chloride Level) 102 mmol/L 98-105 CO2 (test code=CO2) 29 mmol/L 22-29 Anion Gap (test code=Anion Gap) 8 mmol/L 7-16 BUN (test code=BUN) 11.00 mg/dL 6.00-20.00 Creatinine Level (test code=Creatinine Level) 1.10 mg/dL 0.70-1.20 BUN/Creat Ratio (test code=BUN/Creat Ratio) 10 Glucose Level (test code=Glucose Level) 96 mg/dL 70-115 Calcium Level (test code=Calcium Level) 9.3 mg/dL 8.3-10.5 Alk Phos (test code=Alk Phos) 81 U/L 40-129 Bilirubin Total (test code=Bilirubin Total) 0.7 mg/dL 0.1-0.9 Albumin Level (test code=Albumin Level) 4.5 g/dL 3.5-5.2 Protein Total (test code=Protein Total) 7.6 g/dL 6.4-8.3 ALT (test code=ALT) 102 U/L 1-41 AST (test code=AST) 36 U/L 1-40 Globulin (test code=Globulin) 3.1 g/dL 2.9-3.1 A/G Ratio (test code=A/G Ratio) 1.5 ratio eGFR AA (test code=eGFR AA) >60 mL/min/1.73 m2 eGFR (estimated Glomerular Filtration Rate) is an estimated value, calculated from the patient's serum creatinine using the MDRD equation. It is NOT the patient's actual GFR. The eGFR provides a more clinically useful measure of kidney disease than serum creatinine alone.This calculation takes sex and race into account, if the information is provided. If the race is not provided, and the patient is -[place], multiply by 1.212. If sex is not provided, and the patient is female, multiply by 0.742. Results for patients <18 years of age have not been validated by the MDRD study and should be interpreted with caution. eGFR Result Interpretation:eGFR > or=60 is in the Normal RangeeGFR < 60 may mean kidney diseaseeGFR < 15 may mean kidney failure Ranges recommended by the National Kidney Foundation, http://nkdep.nih.gov eGFR Non-AA (test code=eGFR Non-AA) >60.00 mL/min/1.73 m2 eGFR (estimated Glomerular Filtration Rate) is an estimated value, calculated from the patient's serum creatinine using the MDRD equation. It is NOT the patient's actual GFR. The eGFR provides a more clinically useful measure of kidney disease than serum creatinine alone.This calculation takes sex and race into account, if the information is provided. If the race is not provided, and the patient is -[place], multiply by 1.212. If sex is not provided, and the patient is female, multiply by 0.742. Results for patients <18 years of age have not been validated by the MDRD study and should be interpreted with caution. eGFR Result Interpretation:eGFR > or=60 is in the Normal RangeeGFR < 60 may mean kidney diseaseeGFR < 15 may mean kidney failure Ranges recommended by the National Kidney Foundation, http://nkdep.nih.gov Complete Blood Count with [id number] 20:02:37* Test Item Value Reference Range Comments WBC (test code=WBC) 10.4 x10 4.4-10.5 RBC (test code=RBC) 5.93 x10 4.10-5.70 Hgb (test code=Hgb) 15.2 g/dL 13.4-17.4 Hct (test code=Hct) 46.0 % 38.7-52.0 MCV (test code=MCV) 77.60 fL 80.00-100.00 MCHC (test code=MCHC) 33.00 g/dL 32.00-37.50 MCH (test code=MCH) 25.6 pg 27.0-32.5 RDW CV (test code=RDW CV) 13.7 % 11.5-14.5 Platelets (test code=Platelets) 288.0 x10 140.0-440.0 MPV (test code=MPV) 10.9 fL Slide Review (test code=Slide Review) Auto Auto Result created by [email or web address]_REV_AUTO nRBC (test code=nRBC) 0 NRBC Abs (test code=NRBC Abs) 0.00 x10 IPF (test code=IPF) 0 % Automated [id number] 20:02:37* Test Item Value Reference Range Comments Neutro Auto (test code=Neutro Auto) 54.8 % 36.0-70.0 Lymph Auto (test code=Lymph Auto) 37.7 % 12.0-44.0 Butler Auto (test code=Butler Auto) 6.0 % 0.0-11.0 Eos, Auto (test code=Eos, Auto) 0.6 % 0.0-7.0 Basophil Auto (test code=Basophil Auto) 0.5 % 0.0-2.0 Neutro Absolute (test code=Neutro Absolute) 5.7 x10 1.6-7.4 Lymph Absolute (test code=Lymph Absolute) 3.91 x10 .50-4.60 Butler Absolute (test code=Butler Absolute) .62 x10 .00-1.20 Eos Absolute (test code=Eos Absolute) 0.06 x10 0.00-0.74 Baso Absolute (test code=Baso Absolute) 0.05 x10 0.00-0.21 IG [id number] 20:02:37* Test Item Value Reference Range Comments IG (test code=IG) 0.4 % 0.0-5.0 IG Abs (test code=IG Abs) 0 x10 XR Abdomen KUB 1 [id number] 23:19:41Patient: MEETA HARRISON Date/Time04/21/2019 23:15 CDTReason for ExamAbdominal distentionReportEXAM: ABDOMEN ONE VIEWINDICATION: Abdominal distentionCOMPARISON: None availableTECHNIQUE: AP view of the abdomen.FINDINGS:The bowel gas pattern is normal. No pneumoperitoneum is identified.No abnormal calcifications.The osseous structures are unre markable.IMPRESSION:No acute abnormality in the abdomen.LOCATION: R16 Final Dictated by: MD Sanchez Melanie CDictated DT/TM: 04/21/2019 11:19 pmSi gned by: MD Sanchez Melanie CSigned (Electronic Signature): 04/21/2019 11:19 pmComprehensive Metabolic [id number] 22:45:19* Test Item Value Reference Range Comments Sodium Level (test code=Sodium Level) 139.0 mmol/L 135.0-145.0 Potassium Level (test code=Potassium Level) 3.6 mmol/L 3.5-5.1 Chloride Level (test code=Chloride Level) 102 mmol/L 98-105 CO2 (test code=CO2) 22 mmol/L 22-29 Anion Gap (test code=Anion Gap) 15 mmol/L 7-16 BUN (test code=BUN) 11.90 mg/dL 6.00-20.00 Creatinine Level (test code=Creatinine Level) 1.10 mg/dL 0.70-1.20 BUN/Creat Ratio (test code=BUN/Creat Ratio) 11 Glucose Level (test code=Glucose Level) 96 mg/dL 70-115 Calcium Level (test code=Calcium Level) 9.6 mg/dL 8.3-10.5 Alk Phos (test code=Alk Phos) 80 U/L 40-129 Bilirubin Total (test code=Bilirubin Total) 0.6 mg/dL 0.1-0.9 Albumin Level (test code=Albumin Level) 4.8 g/dL 3.5-5.2 Protein Total (test code=Protein Total) 8.2 g/dL 6.4-8.3 ALT (test code=ALT) 110 U/L 1-41 AST (test code=AST) 56 U/L 1-40 Globulin (test code=Globulin) 3.4 g/dL 2.9-3.1 A/G Ratio (test code=A/G Ratio) 1.4 ratio Comprehensive Metabolic [id number] 22:45:19* Test Item Value Reference Range Comments Sodium Level (test code=Sodium Level) 139.0 mmol/L 135.0-145.0 Potassium Level (test code=Potassium Level) 3.6 mmol/L 3.5-5.1 Chloride Level (test code=Chloride Level) 102 mmol/L 98-105 CO2 (test code=CO2) 22 mmol/L 22-29 Anion Gap (test code=Anion Gap) 15 mmol/L 7-16 BUN (test code=BUN) 11.90 mg/dL 6.00-20.00 Creatinine Level (test code=Creatinine Level) 1.10 mg/dL 0.70-1.20 BUN/Creat Ratio (test code=BUN/Creat Ratio) 11 Glucose Level (test code=Glucose Level) 96 mg/dL 70-115 Calcium Level (test code=Calcium Level) 9.6 mg/dL 8.3-10.5 Alk Phos (test code=Alk Phos) 80 U/L 40-129 Bilirubin Total (test code=Bilirubin Total) 0.6 mg/dL 0.1-0.9 Albumin Level (test code=Albumin Level) 4.8 g/dL 3.5-5.2 Protein Total (test code=Protein Total) 8.2 g/dL 6.4-8.3 ALT (test code=ALT) 110 U/L 1-41 AST (test code=AST) 56 U/L 1-40 Globulin (test code=Globulin) 3.4 g/dL 2.9-3.1 A/G Ratio (test code=A/G Ratio) 1.4 ratio eGFR AA (test code=eGFR AA) >60 mL/min/1.73 m2 eGFR (estimated Glomerular Filtration Rate) is an estimated value, calculated from the patient's serum creatinine using the MDRD equation. It is NOT the patient's actual GFR. The eGFR provides a more clinically useful measure of kidney disease than serum creatinine alone.This calculation takes sex and race into account, if the information is provided. If the race is not provided, and the patient is -[place], multiply by 1.212. If sex is not provided, and the patient is female, multiply by 0.742. Results for patients <18 years of age have not been validated by the MDRD study and should be interpreted with caution. eGFR Result Interpretation:eGFR > or=60 is in the Normal RangeeGFR < 60 may mean kidney diseaseeGFR < 15 may mean kidney failure Ranges recommended by the National Kidney Foundation, http://nkdep.nih.gov Lipase [id number] 22:45:19* Test Item Value Reference Range Comments Lipase Level (test code=Lipase Level) 22 U/L 13-60 Comprehensive Metabolic [id number] 22:45:19* Test Item Value Reference Range Comments Sodium Level (test code=Sodium Level) 139.0 mmol/L 135.0-145.0 Potassium Level (test code=Potassium Level) 3.6 mmol/L 3.5-5.1 Chloride Level (test code=Chloride Level) 102 mmol/L 98-105 CO2 (test code=CO2) 22 mmol/L 22-29 Anion Gap (test code=Anion Gap) 15 mmol/L 7-16 BUN (test code=BUN) 11.90 mg/dL 6.00-20.00 Creatinine Level (test code=Creatinine Level) 1.10 mg/dL 0.70-1.20 BUN/Creat Ratio (test code=BUN/Creat Ratio) 11 Glucose Level (test code=Glucose Level) 96 mg/dL 70-115 Calcium Level (test code=Calcium Level) 9.6 mg/dL 8.3-10.5 Alk Phos (test code=Alk Phos) 80 U/L 40-129 Bilirubin Total (test code=Bilirubin Total) 0.6 mg/dL 0.1-0.9 Albumin Level (test code=Albumin Level) 4.8 g/dL 3.5-5.2 Protein Total (test code=Protein Total) 8.2 g/dL 6.4-8.3 ALT (test code=ALT) 110 U/L 1-41 AST (test code=AST) 56 U/L 1-40 Globulin (test code=Globulin) 3.4 g/dL 2.9-3.1 A/G Ratio (test code=A/G Ratio) 1.4 ratio eGFR AA (test code=eGFR AA) >60 mL/min/1.73 m2 eGFR (estimated Glomerular Filtration Rate) is an estimated value, calculated from the patient's serum creatinine using the MDRD equation. It is NOT the patient's actual GFR. The eGFR provides a more clinically useful measure of kidney disease than serum creatinine alone.This calculation takes sex and race into account, if the information is provided. If the race is not provided, and the patient is -[place], multiply by 1.212. If sex is not provided, and the patient is female, multiply by 0.742. Results for patients <18 years of age have not been validated by the MDRD study and should be interpreted with caution. eGFR Result Interpretation:eGFR > or=60 is in the Normal RangeeGFR < 60 may mean kidney diseaseeGFR < 15 may mean kidney failure Ranges recommended by the National Kidney Foundation, http://nkdep.nih.gov eGFR Non-AA (test code=eGFR Non-AA) >60.00 mL/min/1.73 m2 eGFR (estimated Glomerular Filtration Rate) is an estimated value, calculated from the patient's serum creatinine using the MDRD equation. It is NOT the patient's actual GFR. The eGFR provides a more clinically useful measure of kidney disease than serum creatinine alone.This calculation takes sex and race into account, if the information is provided. If the race is not provided, and the patient is -[place], multiply by 1.212. If sex is not provided, and the patient is female, multiply by 0.742. Results for patients <18 years of age have not been validated by the MDRD study and should be interpreted with caution. eGFR Result Interpretation:eGFR > or=60 is in the Normal RangeeGFR < 60 may mean kidney diseaseeGFR < 15 may mean kidney failure Ranges recommended by the National Kidney Foundation, http://nkdep.nih.gov Complete Blood Count with [id number] 22:16:45* Test Item Value Reference Range Comments WBC (test code=WBC) 10.2 x10 4.4-10.5 RBC (test code=RBC) 5.88 x10 4.10-5.70 Hgb (test code=Hgb) 15.2 g/dL 13.4-17.4 MCV (test code=MCV) 77.70 fL 80.00-100.00 Hct (test code=Hct) 45.7 % 38.7-52.0 MCHC (test code=MCHC) 33.30 g/dL 32.00-37.50 MCH (test code=MCH) 25.9 pg 27.0-32.5 RDW CV (test code=RDW CV) 13.5 % 11.5-14.5 Platelets (test code=Platelets) 292.0 x10 140.0-440.0 MPV (test code=MPV) 10.4 fL Slide Review (test code=Slide Review) Auto Auto Result created by [email or web address]_[email or web address] nRBC (test code=nRBC) 0 NRBC Abs (test code=NRBC Abs) 0.00 x10 IPF (test code=IPF) 0 % Automated [id number] 22:16:45* Test Item Value Reference Range Comments Neutro Auto (test code=Neutro Auto) 52.7 % 36.0-70.0 Lymph Auto (test code=Lymph Auto) 37.8 % 12.0-44.0 Butler Auto (test code=Butler Auto) 8.0 % 0.0-11.0 Eos, Auto (test code=Eos, Auto) 0.6 % 0.0-7.0 Basophil Auto (test code=Basophil Auto) 0.5 % 0.0-2.0 Neutro Absolute (test code=Neutro Absolute) 5.4 x10 1.6-7.4 Lymph Absolute (test code=Lymph Absolute) 3.87 x10 .50-4.60 Butler Absolute (test code=Butler Absolute) .82 x10 .00-1.20 Eos Absolute (test code=Eos Absolute) 0.06 x10 0.00-0.74 Baso Absolute (test code=Baso Absolute) 0.05 x10 0.00-0.21 IG [id number] 22:16:45* Test Item Value Reference Range Comments IG (test code=IG) 0.4 % 0.0-5.0 IG Abs (test code=IG Abs) 0 x10 XR Chest 1 View [id number] 18:18:48Patient: MEETA HARRISON Date/Time04/21/2019 18:03 CDTReason for ExamCoughReportSite ID: [id number]: CoughFINDINGS:The lungs are clear and normally expanded.The heart and pulmonary vasculature is normal.Osseous structures are unremarkable.IMPRESSION:Negative chest X-ray. Final Dictated by: MD Clarence, Flaco JDictated DT/TM: 04/21/2019 6:18 pmSigned by: MD Clarence, Flaco JSigned (Electronic Signature): 04/21/2019 6:18 pm Comprehensive Metabolic [id number] 22:24:27* Test Item Value Reference Range Comments Sodium Level (test code=Sodium Level) 138.0 mmol/L 135.0-145.0 Potassium Level (test code=Potassium Level) 3.4 mmol/L 3.5-5.1 Chloride Level (test code=Chloride Level) 100 mmol/L 98-105 CO2 (test code=CO2) 21 mmol/L 22-29 Anion Gap (test code=Anion Gap) 17 mmol/L 7-16 BUN (test code=BUN) 13.10 mg/dL 6.00-20.00 Creatinine Level (test code=Creatinine Level) 1.20 mg/dL 0.70-1.20 BUN/Creat Ratio (test code=BUN/Creat Ratio) 11 Glucose Level (test code=Glucose Level) 156 mg/dL 70-115 Calcium Level (test code=Calcium Level) 9.9 mg/dL 8.3-10.5 Alk Phos (test code=Alk Phos) 82 U/L 40-129 Bilirubin Total (test code=Bilirubin Total) 0.7 mg/dL 0.1-0.9 Albumin Level (test code=Albumin Level) 4.8 g/dL 3.5-5.2 Protein Total (test code=Protein Total) 7.8 g/dL 6.4-8.3 ALT (test code=ALT) 124 U/L 1-41 AST (test code=AST) 57 U/L 1-40 Globulin (test code=Globulin) 3.0 g/dL 2.9-3.1 A/G Ratio (test code=A/G Ratio) 1.6 ratio Creatine [id number] 22:24:27* Test Item Value Reference Range Comments CK (test code=CK) 872 U/L 39-308 Comprehensive Metabolic [id number] 22:24:27* Test Item Value Reference Range Comments Sodium Level (test code=Sodium Level) 138.0 mmol/L 135.0-145.0 Potassium Level (test code=Potassium Level) 3.4 mmol/L 3.5-5.1 Chloride Level (test code=Chloride Level) 100 mmol/L 98-105 CO2 (test code=CO2) 21 mmol/L 22-29 Anion Gap (test code=Anion Gap) 17 mmol/L 7-16 BUN (test code=BUN) 13.10 mg/dL 6.00-20.00 Creatinine Level (test code=Creatinine Level) 1.20 mg/dL 0.70-1.20 BUN/Creat Ratio (test code=BUN/Creat Ratio) 11 Glucose Level (test code=Glucose Level) 156 mg/dL 70-115 Calcium Level (test code=Calcium Level) 9.9 mg/dL 8.3-10.5 Alk Phos (test code=Alk Phos) 82 U/L 40-129 Bilirubin Total (test code=Bilirubin Total) 0.7 mg/dL 0.1-0.9 Albumin Level (test code=Albumin Level) 4.8 g/dL 3.5-5.2 Protein Total (test code=Protein Total) 7.8 g/dL 6.4-8.3 ALT (test code=ALT) 124 U/L 1-41 AST (test code=AST) 57 U/L 1-40 Globulin (test code=Globulin) 3.0 g/dL 2.9-3.1 A/G Ratio (test code=A/G Ratio) 1.6 ratio eGFR AA (test code=eGFR AA) >60 mL/min/1.73 m2 eGFR (estimated Glomerular Filtration Rate) is an estimated value, calculated from the patient's serum creatinine using the MDRD equation. It is NOT the patient's actual GFR. The eGFR provides a more clinically useful measure of kidney disease than serum creatinine alone.This calculation takes sex and race into account, if the information is provided. If the race is not provided, and the patient is -[place], multiply by 1.212. If sex is not provided, and the patient is female, multiply by 0.742. Results for patients <18 years of age have not been validated by the MDRD study and should be interpreted with caution. eGFR Result Interpretation:eGFR > or=60 is in the Normal RangeeGFR < 60 may mean kidney diseaseeGFR < 15 may mean kidney failure Ranges recommended by the National Kidney Foundation, http://nkdep.nih.gov Creatine Kinase MB [id number] 22:24:27* Test Item Value Reference Range Comments CKMB (test code=CKMB) 9.5 ng/mL 0.0-4.9 CKMB % (test code=CKMB %) 1.1 % 0.0-3.4 Troponin [id number] 22:24:27* Test Item Value Reference Range Comments Troponin-T (test code=Troponin-T) <6.000 ng/L 0.000-22.000 The CV of the assay at 99th percentile for both male and female patient population is < 10%. A rise and fall in MICHELLE with at least one value above the 99th percentile with clinical evidence of myocardial ischemia would support a diagnosis of AMI. A delta of at least 20% is recommended to access acute changes in results above the 99th percentile in serial measurements. Stable MICHELLE levels (<20%) delta above the 99th percentile URL would support a diagnosis of chronic myocardial injury. Comprehensive Metabolic [id number] 22:24:27* Test Item Value Reference Range Comments Sodium Level (test code=Sodium Level) 138.0 mmol/L 135.0-145.0 Potassium Level (test code=Potassium Level) 3.4 mmol/L 3.5-5.1 Chloride Level (test code=Chloride Level) 100 mmol/L 98-105 CO2 (test code=CO2) 21 mmol/L 22-29 Anion Gap (test code=Anion Gap) 17 mmol/L 7-16 BUN (test code=BUN) 13.10 mg/dL 6.00-20.00 Creatinine Level (test code=Creatinine Level) 1.20 mg/dL 0.70-1.20 BUN/Creat Ratio (test code=BUN/Creat Ratio) 11 Glucose Level (test code=Glucose Level) 156 mg/dL 70-115 Calcium Level (test code=Calcium Level) 9.9 mg/dL 8.3-10.5 Alk Phos (test code=Alk Phos) 82 U/L 40-129 Bilirubin Total (test code=Bilirubin Total) 0.7 mg/dL 0.1-0.9 Albumin Level (test code=Albumin Level) 4.8 g/dL 3.5-5.2 Protein Total (test code=Protein Total) 7.8 g/dL 6.4-8.3 ALT (test code=ALT) 124 U/L 1-41 AST (test code=AST) 57 U/L 1-40 Globulin (test code=Globulin) 3.0 g/dL 2.9-3.1 A/G Ratio (test code=A/G Ratio) 1.6 ratio eGFR AA (test code=eGFR AA) >60 mL/min/1.73 m2 eGFR (estimated Glomerular Filtration Rate) is an estimated value, calculated from the patient's serum creatinine using the MDRD equation. It is NOT the patient's actual GFR. The eGFR provides a more clinically useful measure of kidney disease than serum creatinine alone.This calculation takes sex and race into account, if the information is provided. If the race is not provided, and the patient is -[place], multiply by 1.212. If sex is not provided, and the patient is female, multiply by 0.742. Results for patients <18 years of age have not been validated by the MDRD study and should be interpreted with caution. eGFR Result Interpretation:eGFR > or=60 is in the Normal RangeeGFR < 60 may mean kidney diseaseeGFR < 15 may mean kidney failure Ranges recommended by the National Kidney Foundation, http://nkdep.nih.gov eGFR Non-AA (test code=eGFR Non-AA) >60.00 mL/min/1.73 m2 eGFR (estimated Glomerular Filtration Rate) is an estimated value, calculated from the patient's serum creatinine using the MDRD equation. It is NOT the patient's actual GFR. The eGFR provides a more clinically useful measure of kidney disease than serum creatinine alone.This calculation takes sex and race into account, if the information is provided. If the race is not provided, and the patient is -[place], multiply by 1.212. If sex is not provided, and the patient is female, multiply by 0.742. Results for patients <18 years of age have not been validated by the MDRD study and should be interpreted with caution. eGFR Result Interpretation:eGFR > or=60 is in the Normal RangeeGFR < 60 may mean kidney diseaseeGFR < 15 may mean kidney failure Ranges recommended by the National Kidney Foundation, http://nkdep.nih.gov D-Dimer [id number] 22:12:52* Test Item Value Reference Range Comments D Dimer, (Quant.) (test code=D Dimer, (Quant.)) 235 ng/mL 0-500 Complete Blood Count with [id number] 21:56:15* Test Item Value Reference Range Comments WBC (test code=WBC) 13.0 x10 4.4-10.5 RBC (test code=RBC) 6.19 x10 4.10-5.70 Hgb (test code=Hgb) 16.0 g/dL 13.4-17.4 Hct (test code=Hct) 47.9 % 38.7-52.0 MCV (test code=MCV) 77.40 fL 80.00-100.00 MCHC (test code=MCHC) 33.40 g/dL 32.00-37.50 MCH (test code=MCH) 25.8 pg 27.0-32.5 RDW CV (test code=RDW CV) 13.2 % 11.5-14.5 Platelets (test code=Platelets) 319.0 x10 140.0-440.0 MPV (test code=MPV) 10.2 fL Slide Review (test code=Slide Review) Auto Auto Result created by [email or web address]_AUTO nRBC (test code=nRBC) 0 NRBC Abs (test code=NRBC Abs) 0.00 x10 IPF (test code=IPF) 0 % Automated [id number] 21:56:15* Test Item Value Reference Range Comments Neutro Auto (test code=Neutro Auto) 70.8 % 36.0-70.0 Lymph Auto (test code=Lymph Auto) 23.6 % 12.0-44.0 Butler Auto (test code=Butler Auto) 4.5 % 0.0-11.0 Eos, Auto (test code=Eos, Auto) 0.2 % 0.0-7.0 Basophil Auto (test code=Basophil Auto) 0.5 % 0.0-2.0 Neutro Absolute (test code=Neutro Absolute) 9.2 x10 1.6-7.4 Lymph Absolute (test code=Lymph Absolute) 3.07 x10 .50-4.60 Butler Absolute (test code=Butler Absolute) .58 x10 .00-1.20 Eos Absolute (test code=Eos Absolute) 0.03 x10 0.00-0.74 Baso Absolute (test code=Baso Absolute) 0.06 x10 0.00-0.21 IG [id number] 21:56:15* Test Item Value Reference Range Comments IG (test code=IG) 0.4 % 0.0-5.0 IG Abs (test code=IG Abs) 0 x10
--- NOTE | 2019-06-08 12:28 | Operative Report ---
DATE OF PROCEDURE: 06/08/2019 SURGEON: Rogelio Rowland MD PROCEDURE: EGD with biopsies. INDICATIONS FOR PROCEDURE: Upper abdominal pain, bloating, nausea. MEDICATIONS: The patient was done under MAC, please see anesthesiologist's note. PROCEDURE IN DETAIL: With the patient in the left lateral decubitus position, a flexible fiberoptic Olympus gastroscope was introduced into the esophagus under direct visualization without any difficulty. There was some patchy intense erythema noted in distal esophagus. The scope was then advanced with ease into the stomach. Mucosa overlying the antrum and the body revealed some diffuse erythema and low-grade to moderate edema, and biopsies were obtained and sent to stain for H. pylori. Pylorus was of normal contour and shape, it was intubated with ease and the scope was advanced all the way to the second portion of the duodenum. Biopsies were obtained from the second portion as well as from the duodenal bulb to rule out sprue. The scope was then withdrawn into the stomach and retroflexed, mucosa overlying the fundus and the cardia appeared to be within normal limits. The scope was then straightened out, it was subsequently withdrawn, and the patient tolerated the procedure well. IMPRESSION: 1. Distal esophagitis. 2. Gastritis, biopsied, biopsies sent to stain for Helicobacter pylori. 3. Rule out sprue. PLAN: Follow up histology. Initiate Protonix 40 mg one p.o. q.a.m. before meals. Rogelio Rowland MD [facility] – [place]/MODL /[id number] cc: Carlito Castro MD
== END | disposition home or self-care (01) ==
LOC: OR 06:05
PROVIDERS: ATTEND Internal Medicine Gastroenterology
DX: K29.50 Unspecified chronic gastritis without bleeding (principal); K20.9 Esophagitis, unspecified; K59.00 Constipation, unspecified; J45.909 Unspecified asthma, uncomplicated; F41.9 Anxiety disorder, unspecified; F17.210 Nicotine dependence, cigarettes, uncomplicated
CPT/HCPCS: 43239; J2001; J2250; J2704; J3010